=== PATIENT | female | born 1940 | race Caucasian/White ===

== ENCOUNTER 2018-04-15 21:09 | Emergency (ER) | payer MEDICAID ==
[~2018-04-15] VITALS: Ht 154.9 cm; Wt 69.4 kg
[2018-04-15 21:17] VITALS: Ht 154.9 cm; Wt 69.4 kg
[2018-04-15 22:15] VITALS: BP 130/84
== END 2018-04-15 22:15 | disposition home or self-care (01) ==
LOC: ED 21:09
DX: G51.0 Bell's palsy (principal); M54.2 Cervicalgia; Z88.0 Allergy status to penicillin